=== PATIENT | male | born 1945 | race African-American/Black ===

== ENCOUNTER → 2019-05-21 08:23 | Outpatient (CLI) | payer MEDICARE, MEDICAID, SELFPAY ==
[2019-05-21 08:37] LABS: Basophils # 0.1 K/mm3 (0-0.2); Basophils % 1.3 % (0.1-2.0); Eosinophils # 0.2 K/mm3 (0.0-0.4); Eosinophils % 3.5 % (0.1-12.0); Hematocrit 44.3 % (42.0-52.0); Hemoglobin 14.7 g/dL (14.1-18.0); Lymphocytes # 1.7 K/mm3 (0.7-4.5); Lymphocytes % 39.6 % (10-50); Mean Corpuscular HGB Conc 33.2 g/dL (31.8-35.4); Mean Corpuscular Volume 87.3 fl (80-94); Mean Platelet Volume 7.7 fl (7.4-10.4); Monocytes # 0.3 K/mm3 (0.1-1.0); Monocytes % 5.7 % (1.7-9.3); Neutrophils # 2.2 K/mm3 (1.8-7.8); Platelet Count 262 K/mm3 (142-424); Red Blood Count 5.07 M/mm3 (4.60-6.20); Red Cell Distribution Width 13.2 % (11.5-17.5); White Blood Count 4.3 K/mm3 (4.8-10.8)
[2019-05-21 09:05] LABS: Chloride 101 mmol/L (98-107); Potassium 4.2 mmoL/L (3.5-5.1); Sodium 138 mmol/L (136-145)
[2019-05-21 09:08] LABS: Anion Gap 8.2 mEq/L (5-15); Blood Urea Nitrogen 17 mg/dl (9-20); Calcium 9.5 mg/dl (8.4-10.2); Carbon Dioxide 33 mmol/L (22.0-30.0); Estimated Glomerular Filt Rate 95 ml/min (>60); GFR (African American) 115 ML/MIN (>60); Glucose 116 mg/dl (74-100)
== END ==
LOC: LAB 05-22 07:53 → LAB.DROPOF 05-22 07:53
PROVIDERS: Visit Provider Emergency Medicine
DX: R73.9 Hyperglycemia, unspecified (principal)
CPT/HCPCS: 80048; 85025

== ENCOUNTER → 2019-08-25 07:43 | Outpatient (CLI) | payer MEDICARE, MEDICAID, SELFPAY ==
[2019-08-25 08:49] LABS: Coronavirus 19 IgG Antibody Negative (Negative); Coronavirus 19 IgM Antibody Negative (Negative)
== END ==
PROVIDERS: Visit Provider Surgery
DX: Z01.818 Encounter for other preprocedural examination (principal)
CPT/HCPCS: 36415; 86328

== ENCOUNTER 2019-08-26 07:07 | Day surgery (SDC) | payer MEDICARE, MEDICAID, SELFPAY ==
[2019-08-26] VITALS (7 sets, daily range): BP systolic 81–137; BP diastolic 49–79; PULSE 63–72; RESP 16; TEMP 36.3–36.5; O2SAT 95–99; BMI 25.9
--- NOTE | 2019-08-26 08:00 | P.PN_ITS ---
[facility] Anesthesia Checklist - Structural Data Admitted From: Long-term Nursing [facility] Planned Operative Procedure/s: colonoscopy Consent for Planned Operative Procedure(s) Verified: Yes - Airway Assessment C-Spine Mobility Assessed: Yes TMJ Mobility Assessed: Yes Dentition: Poor Dentition - Neurological Assessment Level of Consciousness: Awake, Alert, Inappropriate - Anesthesia Plan Anesthesia Risk discussed: Yes Anesthesia Plan: Verified ASA Class: III Anesthesia Type: MAC [facility] History I have reviewed the patient's past medical history: Yes Medical History: Denies:: Cancer, Diabetes Mellitus Type 1, Diabetes Mellitus Type 2, Internal Pacemaker, MRSA, Seizures *Have you ever received a pneumonia vaccine?: Yes *Have you received a flu vaccine this season?: Yes Anesthesia experience/problems:: none Other Surgeries: No: Pacemaker Amputation: No - *Social History Smoking Status: Smoker, status unknown Alcohol Intake: never Substance Use Type: denies use *Occupational Status:: disabled Housing: assisted living facility *Travel in the last 8 weeks: None Family Hx:: Unable to obtain
--- NOTE | 2019-08-26 08:57 | HMH.SCOPE ---
- Procedure: Date: 08/26/19 Procedure Performed:: Flexible sigmoidoscopy Indications:: Patient is a 73-year-old male senior care patient with reported schizophrenia referred by Shala Quiroz for colonoscopy. He had a Cologuard test which was positive. No known history of rectal bleeding or melena. No known history of previous colonoscopy Performing Provider:: Jean Carlos Neil MD Referring Provider:: Shala Quiroz Sedation:: Propofol Procedure:: Patient was taken to endoscopy procedure room. He was positioned in a lateral decubitus position. Adequate intravenous sedation was achieved with anesthesia titration of propofol. Variable stiffness Olympus colonoscope was inserted via the anus. There was some particulate stool within the rectum which was suctioned free. In the proximal rectum there is a circumferential ulcerated fungating and firm mass. This was between approximately 20 cm from the anal verge and 25 cm. The colonoscope was able to be, with some difficulty, advanced proximal to the lesion but the colonoscope could not be advanced any further likely due to significant diverticular disease. There did appear to be a tiny adenomatous polyp immediately proximal to the apparent circumferential proximal rectal carcinoma. Multiple biopsies were obtained of the circumferential mass. Once again the attempt was made to advance the colonoscope proximally which could not be safely performed likely due to significant diverticulosis. Colonoscope was withdrawn. 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 Arrangements will be made for colorectal surgical evaluation at a tertiary facility. Complications:: None immediately apparent Estimated blood obtained (mL): 5
== END 2019-08-26 09:47 | disposition home or self-care (01) ==
PROVIDERS: PCP Emergency Medicine; Visit Provider Surgery
PROC: 0DJD8ZZ Inspection of Lower Intestinal Tract, Via Natural or Artificial Opening Endoscopic (ICD-10-PCS; CPT 45330; principal; 2019-08-26 08:30)
DX: C20 Malignant neoplasm of rectum (principal); K57.30 Diverticulosis of large intestine without perforation or abscess without bleeding; F20.9 Schizophrenia, unspecified; Z79.899 Other long term (current) drug therapy
CPT/HCPCS: 45331; 88305

== ENCOUNTER → 2019-09-10 11:55 | Outpatient (CLI) | payer MEDICARE, MEDICAID, SELFPAY ==
[2019-09-10 13:01] LABS: Blood Urea Nitrogen 15 mg/dl (9-20); Estimated Glomerular Filt Rate 132 ml/min (>60); GFR (African American) 160 ML/MIN (>60)
== END ==
PROVIDERS: Visit Provider Emergency Medicine
DX: Z01.818 Encounter for other preprocedural examination (principal)
CPT/HCPCS: 82565; 84520

== ENCOUNTER → 2019-09-11 09:02 | Outpatient (CLI) | payer MEDICARE, MEDICAID, SELFPAY ==
--- NOTE | 2019-09-11 09:08 | CT_ITS ---
PROCEDURE: CT CHEST W CON CLINCAL INDICATION: COLON CA Follow-up colon cancer COMPARISON: CT CT ABDOMEN PELVIS W CON from 09/11/2019 TECHNIQUE: IV Contrast: 75ml Optiray 350 Axial images obtained with sagittal and coronal reformats. All CT scans at the facility use one or more dose reduction, viz: automated exposure control, ma/kV adjustment per patient size (including targeted exams where dose is matched to indication, i.e. head), or iterative reconstruction technique. FINDINGS: HEART AND MEDIASTINAL STRUCTURES: There are coronary artery calcifications. No mediastinal or hilar mass or adenopathy. There is minimal thickening of the pericardium anteriorly. LUNGS AND PLEURAL SPACES: 3 mm noncalcified nodule right upper lobe Number 21 series 4. 3 mm noncalcified nodule right upper lobe image 35 series 4. 9 mm noncalcified nodule right middle lobe anteriorly possibly fissural in nature having a flat like appearance. There is vascular crowding in the lung bases. There is a 4 mm noncalcified subpleural nodule in the left upper lobe patchy ground-glass density noted in the left lower lobe nonspecific. No effusions evident.. BONY STRUCTURES: No acute bony abnormalities apparent. IMPRESSION: 1. There are scattered small pulmonary nodular opacities the largest in the right middle lobe at 9 mm. These are nonspecific and could be inflammatory/infectious in nature. Cannot exclude the possibility of metastatic disease in this patient with history of colon cancer. Short-term follow-up is suggested. 2. Low lung volumes with vascular crowding in the lung bases and a patchy area of atelectasis or infiltrate in the left lung base medially Dictated b Hans Wheatley MD 09/12/2019 11:31 Hans Wheatley MD in [place] 09/12/2019 11:31
--- NOTE | 2019-09-11 09:08 | CT_ITS ---
PROCEDURE: CT ABDOMEN PELVIS W CON CLINICAL INDICATION: COLON CA Metastatic workup COMPARISON: No exams were available for comparison TECHNIQUE: IV Contrast: 75ML OPTIRAY 350 Oral Contrast None Axial images obtained with sagittal and coronal reformats. All CT scans at the facility use one or more dose reduction, viz: automated exposure control, ma/kV adjustment per patient size (including targeted exams where dose is matched to indication, i.e. head), or iterative reconstruction technique. FINDINGS: Multiple gallstones are present which measure up to 2.4 cm. No focal liver lesion is apparent. There is some fatty infiltration along the falciform ligament region. The spleen and pancreas have an unremarkable appearance. No adrenal mass evident. There is a 15 cm right renal cyst arising from the anterior aspect and mid aspect of the right kidney. There are smaller left renal cyst measuring up to 3.4 cm. No renal or ureteral calculi are evident. No hydronephrosis. No intestinal obstruction or free air. No evidence of appendicitis or diverticulitis. There is colonic diverticulosis. There is an area of somewhat irregular thickening involving the sigmoid colon in the right pelvic region. The sigmoid colon is redundant. This area of thickening measures approximately 5.4 cm in length. This is suspicious for neoplasm. There is some minimal increased density of the pericolic fat in this region suspicious for sub serosal invasion. A small lymph node is present to the right of the sigmoid colon at this area measuring 1.5 x 0.9 cm which could represent local lymph node involvement. There are degenerative changes in the lumbar spine with mild lumbar curvature convex left. No bony destructive process identified. IMPRESSION: 1. Sigmoid colon mass consistent with carcinoma with some ill definition of the colon wall peripherally and slight increased density of the pericolic fat suspicious for sub serosal spread with local lymph node involvement 2. No liver or adrenal metastasis apparent. 3. Large right renal cyst and smaller left renal cyst 4. Cholelithiasis Dictated b Hans Wheatley MD 09/12/2019 11:40 Hans Wheatley MD in [place] 09/12/2019 11:40
== END ==
PROVIDERS: PCP Emergency Medicine; Visit Provider Surgery
DX: C18.9 Malignant neoplasm of colon, unspecified (principal)
CPT/HCPCS: 71260; 74177; Q9967

== ENCOUNTER → 2019-10-13 11:05 | Outpatient (CLI) | payer MEDICARE, MEDICAID, SELFPAY ==
[2019-10-13 11:15] LABS: Basophils # 0.1 K/mm3 (0-0.2); Basophils % 1.7 % (0.1-2.0); Eosinophils # 0.1 K/mm3 (0.0-0.4); Eosinophils % 2.9 % (0.1-12.0); Hematocrit 39.6 % (42.0-52.0); Hemoglobin 13.5 g/dL (14.1-18.0); Lymphocytes # 1.3 K/mm3 (0.7-4.5); Lymphocytes % 27.7 % (10-50); Mean Corpuscular Hemoglobin 29.6 pg (27.0-31.2); Mean Platelet Volume 7.6 fl (7.4-10.4); Monocytes # 0.3 K/mm3 (0.1-1.0); Neutrophils # 2.9 K/mm3 (1.8-7.8); Neutrophils % 60.7 % (37.0-80.0); Platelet Count 247 K/mm3 (142-424); Red Blood Count 4.55 M/mm3 (4.60-6.20); Red Cell Distribution Width 13.4 % (11.5-17.5); White Blood Count 4.7 K/mm3 (4.8-10.8)
== END ==
PROVIDERS: Visit Provider Emergency Medicine
DX: K92.1 Melena (principal)
CPT/HCPCS: 85025

== ENCOUNTER → 2019-10-30 16:30 | Outpatient (CLI) | payer MEDICARE, MEDICAID, SELFPAY ==
[2019-11-01 18:25] LABS: Covid-19 Nasal PCR Sendout Lex NOT DETECTED
== END ==
PROVIDERS: Visit Provider Emergency Medicine
DX: Z03.818 Encounter for observation for suspected exposure to other biological agents ruled out (principal)
CPT/HCPCS: U0004

== ENCOUNTER → 2019-11-10 11:29 | Outpatient (CLI) | payer MEDICARE, MEDICAID, SELFPAY | PROVIDERS: Visit Provider Emergency Medicine | DX: Z03.818 Encounter for observation for suspected exposure to other biological agents ruled out (principal) | CPT/HCPCS: U0003 ==

== ENCOUNTER → 2020-02-24 02:32 | Outpatient (CLI) | payer MEDICARE, MEDICAID, SELFPAY ==
[2020-02-25 11:05] LABS: Covid-19 Nasal PCR Sendout P&C POSITIVE
== END ==
PROVIDERS: Visit Provider Emergency Medicine
DX: U07.1 COVID-19 (principal)
CPT/HCPCS: U0004

== ENCOUNTER 2023-04-30 17:43 | Emergency (ER) | payer MEDICARE, MEDICAID, SELFPAY ==
[2023-04-30] VITALS (39 sets, daily range): BP systolic 103–138; BP diastolic 50–77; PULSE 80–116; RESP 16–20; TEMP 36.4–36.9; O2SAT 93–100; BMI 25.1
--- NOTE | 2023-04-30 18:10 | ED_ITS ---
<Statement entered by Ez Dominique MD - 04/30/23 23:19> I was consulted by the ANNIKA, and we discussed the complexity of the problems being addressed. I approved the treatment and management plan for this patient's care in the emergency department, thus performing a substantive portion of the medical decision making. Ez Dominique MD Discharge Plan Disposition Patient Disposition: [facility] Condition: Good Prescriptions Prescriptions: No Action acetaminophen [Tylenol Extra Strength] 500 mg tablet 500 mg PO Q4H PRN (Reason: fever or pain) Qty: 60 0RF ondansetron HCl [Zofran] 4 mg tablet 4 mg PO Q8H PRN (Reason: nausea and vomiting) Qty: 14 0RF baclofen 10 mg tablet 10 mg PO Q6H PRN loratadine 10 mg tablet 5 mg PO DAILY metformin 500 mg tablet 500 mg PO BID montelukast 10 mg tablet 10 mg PO HS Risperdal Consta 50 mg/2 mL suspension,extended rel recon 50 mg IM Q14D potassium chloride 10 MEQ tablet extended release 10 meq PO DAILY Referrals Follow up/Referrals: James Michel DO [Primary Care Provider] - See instructions Activity Restrictions/Add. Instructions Additional Instructions/Restrictions: Patient accepted to the [facility] ER for Dr. Langford Clinical Impressions Clinical Impression: Colonic mass, Lymphadenopathy, mesenteric Anemia Qualifiers: Anemia type: unspecified type Qualified Code(s): D64.9 - Anemia, unspecified Discharge ED Provider: Ez Dominique General Adult HPI General Chief complaint: Recheck/Abnormal Lab/Rx Stated complaint: low hemoglobin Time Seen by Provider: 04/30/23 18:09 Mode of Arrival: EMS Source of Information: Patient, EMS and Medical Record Limitations: No Limitations Description of Symptoms (Recalled from ER Triage Doc. by RN): per [facility] home pt had labs drawn today and his hemoglobin was 5.0 and hemocrit was 17.2, states that he has been more lethargic and hasnt really ate the last few days. History of Present Illness HPI narrative: [facility] from the jail for reported hemoglobin of 5.1. There was no contacts provided by the jail as still was the patient's chronic hemoglobin has been. I review of the records does not provide any current data and last data that I have is from almost 4 years ago that showed a normal hemoglobin hematocrit. Patient himself has a history of schizophrenia and is a unreliable historian and is difficult to understand. To the best of my knowledge to determine the patient has had no GI bleeding has a history of sigmoid or rectal cancer status post resection but I had do not have documented confirmation of such. The remainder of his past medical history and review of systems is unobtainable at the time of my exam the patient's medical condition and lack of documentation sent from the jail. Related Data Home Medications Medication Instructions Recorded Confirmed potassium chloride 10 mEq 10 meq PO DAILY Supplement 08/22/19 03/03/23 tablet,extended release baclofen 10 mg tablet 10 mg PO Q6H PRN 01/11/23 03/03/23 loratadine 10 mg tablet 5 mg PO DAILY Allergy symptoms 01/11/23 03/03/23 metformin 500 mg tablet 500 mg PO BID 01/11/23 03/03/23 montelukast 10 mg tablet 10 mg PO HS 01/11/23 03/03/23 risperidone microspheres 50 mg/2 50 mg IM Q14D 01/11/23 03/03/23 mL intramuscular susp,ext release (Risperdal Consta) Previous Rx's Medication Instructions Recorded acetaminophen 500 mg tablet 500 mg PO Q4H PRN fever or pain 11/26/19 (Tylenol Extra Strength) #60 tabs ondansetron HCl 4 mg tablet 4 mg PO Q8H PRN nausea and 11/26/19 (Zofran) vomiting #14 tabs Allergies Allergy/AdvReac Type Severity Reaction Status Date / Time tuberculin Allergy Unknown Uncoded 01/10/23 16:21 [facility] Disclaimer: The information contained in this section may have been updated after the patient was seen, as this information can be updated by other users. Medical History (Updated 04/30/23 @ 21:31 by ATIF Hobson) Age-related nuclear cataract, bilateral Malignant neoplasm of rectum Positive colorectal cancer screening using Cologuard test Psychotic affective disorder Schizophrenia Hypokalemia Hyperglycemia Surgical History (Updated 03/03/23 @ 17:56 by Sagrario Mathew APRN) Hx of colonoscopy Social History Smoking Status: Unknown if ever smoked alcohol intake: never substance use type: denies use current occupational status: disabled Travel in the last 8 weeks: None housing: jail caffeine: No ROS Obtained: Yes Systems reviewed as appropriate & no additional complaints except as documented Physical Exam General General appearance: alert and in no apparent distress Head Head exam: atraumatic and normal inspection Eye Eye exam: Present normal appearance, PERRL and EOMI; Absent scleral icterus ENT ENT exam: Present normal exam, normal oropharynx and mucous membranes moist Neck Neck exam: Present normal inspection and full ROM; Absent lymphadenopathy Chest Chest inspection: Present normal inspection and symmetric chest wall rise Respiratory Respiratory exam: Present normal lung sounds bilaterally; Absent respiratory distress Cardiovascular Cardiovascular exam: Present regular rate, normal rhythm and normal heart sounds Abdominal Exam Abdominal exam: Present soft and normal bowel sounds; Absent distention, tenderness, guarding, rebound or mass exam: Present normal inspection and other (Rectal exam shows no stigmata of bleeding) Extremities Exam Extremities exam: Present normal inspection and full ROM Back Exam Back exam: Present normal inspection and full ROM Neurological Exam Neurological exam: Present alert (Patient is awake alert and interactive attempts to answer questions but is not understandable.) and CN II-XII intact; Absent oriented X3 Psychiatric Psychiatric exam: Present normal affect and normal mood Skin Skin exam: Present warm, dry and normal color Medical Decision Making Tarun Inquiry Pt receiving controlled substance: No Vital Signs: 04/30/23 17:44 04/30/23 17:52 04/30/23 18:00 Temperature 98.1 F Temperature Source Oral Pulse Rate 116 H Pulse Rate [Left Radial] 112 H Respiratory Rate 16 TAR Vitals Timing Blood Pressure 117/63 Blood Pressure [Right Arm] 103/67 L Blood Pressure Mean Blood Pressure Mean [Right Arm] 79 Blood Pressure Source Blood Pressure Source [Right Arm] Automatic Cuff Blood Pressure Position Blood Pressure Position [Right Arm] Sitting 02 Sat by Pulse Oximetry 98 95 Oxygen Delivery Method Room Air Room Air 04/30/23 18:30 04/30/23 19:00 04/30/23 19:30 Temperature Temperature Source Pulse Rate 111 H 105 H 100 H Pulse Rate [Left Radial] Respiratory Rate 20 20 TAR Vitals Timing Blood Pressure 124/61 137/74 118/68 Blood Pressure [Right Arm] Blood Pressure Mean 82 Blood Pressure Mean [Right Arm] Blood Pressure Source Blood Pressure Source [Right Arm] Blood Pressure Position Blood Pressure Position [Right Arm] 02 Sat by Pulse Oximetry 96 96 98 Oxygen Delivery Method Room Air Room Air Room Air 04/30/23 20:00 04/30/23 20:29 04/30/23 20:35 Temperature 97.6 F 97.8 F Temperature Source Oral Oral Pulse Rate 92 H 91 H 90 Pulse Rate [Left Radial] Respiratory Rate 17 16 TAR Vitals Timing Pre-Blood Vitals Start Vitals Blood Pressure 132/61 111/69 128/73 Blood Pressure [Right Arm] Blood Pressure Mean 85 83 91 Blood Pressure Mean [Right Arm] Blood Pressure Source Automatic Cuff Automatic Cuff Blood Pressure Source [Right Arm] Blood Pressure Position Sitting Sitting Blood Pressure Position [Right Arm] 02 Sat by Pulse Oximetry 97 98 97 Oxygen Delivery Method 04/30/23 20:40 04/30/23 20:45 04/30/23 20:50 Temperature 97.6 F 97.7 F 98.1 F Temperature Source Oral Oral Oral Pulse Rate 89 99 H 96 H Pulse Rate [Left Radial] Respiratory Rate 16 16 16 TAR Vitals Timing 5 Minute 10 Minute 15 Minute Blood Pressure 103/64 L 117/72 121/64 Blood Pressure [Right Arm] Blood Pressure Mean 77 87 83 Blood Pressure Mean [Right Arm] Blood Pressure Source Automatic Cuff Automatic Cuff Automatic Cuff Blood Pressure Source [Right Arm] Blood Pressure Position Sitting Sitting Sitting Blood Pressure Position [Right Arm] 02 Sat by Pulse Oximetry 95 100 100 Oxygen Delivery Method 04/30/23 21:05 04/30/23 21:20 04/30/23 21:35 Temperature 98.0 F 98.2 F 98.4 F Temperature Source Oral Oral Oral Pulse Rate 94 H 88 98 H Pulse Rate [Left Radial] Respiratory Rate 16 16 16 TAR Vitals Timing 30 Minute 45 Minute 60 Minute Blood Pressure 138/69 119/77 111/50 L Blood Pressure [Right Arm] Blood Pressure Mean 92 91 70 Blood Pressure Mean [Right Arm] Blood Pressure Source Automatic Cuff Automatic Cuff Automatic Cuff Blood Pressure Source [Right Arm] Blood Pressure Position Sitting Sitting Sitting Blood Pressure Position [Right Arm] 02 Sat by Pulse Oximetry 99 98 97 Oxygen Delivery Method Lab Data Lab results reviewed: Yes I reviewed the patient's lab results. Lab Results 04/30/23 17:52: WBC 5.0, RBC 3.22 L, Hgb 5.6 L*, Hct 19.8 L*, MCV 61.4 L, MCH 17.5 L, MCHC 28.5 L, RDW 17.8 H, Plt Count 485 H, MPV 8.1, Neut % (Auto) 59.9, Lymph % (Auto) 28.6, [place] % (Auto) 8.7, Eos % (Auto) 1.7, Baso % (Auto) 1.1, Neut # (Auto) 3.0, Lymph # (Auto) 1.4, [place] # (Auto) 0.4, Eos # (Auto) 0.1, Baso # (Auto) 0.1, PT 13.0 H, INR 1.22 H, Sodium 139, Potassium 3.3 L, Chloride 108 H , Carbon Dioxide 23, Anion Gap 11.3, BUN 10, Creatinine 0.80, Estimated Creat Clear 74, Estimated GFR 94, Est GFR ( Amer) 113, Glucose 185 H, Calcium 8.1 L, Magnesium 1.9, Total Bilirubin 0.4, AST 27, ALT 28, Alkaline Phosphatase 54, Total Protein 6.9, Albumin 3.1 L, Globulin 3.8 H, Albumin/Globulin Ratio 0.8 L, Blood Type Confirm O Positive 04/30/23 18:32: Blood Type O Positive, Antibody Screen Negative, Crossmatch (AHG) See Detail 04/30/23 17:52 04/30/23 17:52 Orders (Tests/Meds): ED MEDICATIONS Generic Name Dose Route Start Last Admin Trade Name Freq PRN Reason Stop Dose Admin Sodium Chloride 250 mls @ 25 mls/hr 04/30/23 18:45 Sod Chlor 0.9% 250ml Bag IV 05/01/23 18:44 .Q10H TRUNG Sodium Chloride 10 ml 04/30/23 19:56 04/30/23 19:57 Sodium Chloride 0.9% 10ml Syr (Rad Only) IV 05/30/23 19:55 10 ml NEEDED PRN Administration Maintain IV Site Discontinued Medications Generic Name Dose Route Start Last Admin Trade Name Freq PRN Reason Stop Dose Admin Acetaminophen 1,000 mg 04/30/23 18:44 04/30/23 19:07 Acetaminophen 1,000mg/100ml Vial IV 04/30/23 18:45 1,000 mg ONCE ONE Administration Lactated Ringer's 1,000 mls @ 999 mls/hr 04/30/23 18:14 04/30/23 18:59 Lactated Ringer's 1000 Ml Bag IV 04/30/23 19:14 999 mls/hr .Q1H1M ONE Administration Iopamidol 75 ml 04/30/23 19:56 04/30/23 19:57 Iopamidol-370 (76%);100ml Bottle IV 04/30/23 19:57 75 ml ONCE ONE Administration Ketorolac Tromethamine 15 mg 04/30/23 18:44 04/30/23 18:57 Ketorolac 30mg/Ml Vial IV 04/30/23 18:45 15 mg ONCE ONE Administration Morphine Sulfate 2 mg 04/30/23 18:44 04/30/23 19:00 Morphine 2mg/Ml Syringe IV 04/30/23 18:45 2 mg ONCE ONE Administration ORDERS Category Date Time Status Blood transfusion [Red Blood Cells] Stat BBK 04/30/23 18:32 Results Type and Screen Stat K 04/30/23 18:[address] abdomen pelvis w con Stat Cat Scan 04/30/23 19:13 Completed Complete Blood Count Auto Diff Stat Lab 04/30/23 17:52 Completed Comprehensive Metabolic Panel Stat Lab 04/30/23 17:52 Completed INR [Prothrombin Time INR] Stat Lab 04/30/23 17:52 Completed Magnesium Stat Lab 04/30/23 17:52 Completed Occult Blood,Stool Stat Lab 04/30/23 18:18 Ordered UA [Urinalysis and Microscopic] Stat Lab 04/30/23 18:15 Ordered Medical Decision Narrative: In summary patient is a 70-year-old male who presents to the emergency department for evaluation of initially anemia. Patient is presented tachycardic at 112 with a blood pressure of 103/67 respiratory rate is 16 temperature 98.1 with O2 sat of 98% on room air. Upon arrival, and afebrile. Physical exam is unremarkable and nonfocal including no abdominal pain and no obvious stigmata of bleeding or hemorrhoids on rectal. Patient has schizophrenia and is a difficult historian and very difficult to understand if at all. He seems to understand questioning but I do not know if he is answering appropriately.. Differential diagnosis includes GI blood loss versus iron deficiency anemia versus neoplastic disease versus bone marrow suppression etc.. Initial workup will be conducted with hematologic labs CT scan of the abdomen pelvis with contrast.. Initial interventions include crystalloid bolus type and screen with transfusion packed red blood cells. Initial workup reviewed by me does indeed show a hemoglobin of 5.6 but also evidence of iron deficiency. CT scan of the abdomen pelvis via my informal interpretation shows right lower quadrant mesenteric lymphadenopathy with a mass in the ileocecal valve area does not appear obstructing. Given the resources needed including gastroenterology colorectal surgery and hematology oncology not available inpatient at this facility I discussed the patient management with the [facility]. They graciously accepted the patient in transfer to [facility] in the care of Dr Langford Critical Care Critical Care Time Critical Care Time: No
[2023-04-30 18:17] LABS: Basophils # 0.1 K/mm3 (0-0.2); Basophils % 1.1 % (0.1-2.0); Eosinophils # 0.1 K/mm3 (0.0-0.4); Eosinophils % 1.7 % (0.1-12.0); Lymphocytes # 1.4 K/mm3 (0.7-4.5); Lymphocytes % 28.6 % (10-50); Mean Corpuscular HGB Conc 28.5 g/dL (31.8-35.4); Mean Corpuscular Hemoglobin 17.5 pg (27.0-31.2); Mean Corpuscular Volume 61.4 fl (80-94); Mean Platelet Volume 8.1 fl (7.4-10.4); Monocytes # 0.4 K/mm3 (0.1-1.0); Monocytes % 8.7 % (1.7-9.3); Neutrophils % 59.9 % (37.0-80.0); Platelet Count 485 K/mm3 (142-424); Red Blood Count 3.22 M/mm3 (4.60-6.20); Red Cell Distribution Width 17.8 % (11.5-17.5)
[2023-04-30 18:19] LABS: Chloride 108 mmol/L (98-107); Hematocrit 19.8 % (42.0-52.0)
[2023-04-30 18:20] LABS: Potassium 3.3 mmoL/L (3.5-5.1); Sodium 139 mmol/L (136-145)
--- NOTE | 2023-04-30 18:20 | PC.NURSE ---
Critical H&H reported to MD at this time by AxelRN
[2023-04-30 18:22] LABS: Alanine Aminotransferase 28 U/L (12-78); Albumin Level 3.1 g/dl (3.5-5.0); Albumin/Globulin Ratio 0.8 (1.1-1.8); Alkaline Phosphatase 54 U/L (38-126); Anion Gap 11.3 mEq/L (5-15); Aspartate Amino Transferase 27 U/L (17-59); Bilirubin,Total 0.4 mg/dl (0.2-1.3); Blood Urea Nitrogen 10 mg/dl (9-20); Carbon Dioxide 23 mmol/L (22.0-30.0); Creatinine Clearance Estimated 74 mL/min (50-200); Estimated Glomerular Filt Rate 94 ml/min (>60); GFR (African American) 113 ML/MIN (>60); Globulin 3.8 g/dL (1.3-3.2); Total Protein,Serum 6.9 g/dl (6.3-8.2)
[2023-04-30 18:23] LABS: Calcium 8.1 mg/dl (8.4-10.2); Glucose 185 mg/dl (74-100)
[2023-04-30 18:37] LABS: INR 1.22 (0.9-1.1)
[2023-04-30 18:40] LABS: Magnesium 1.9 mg/dl (1.6-2.3)
[2023-04-30 18:45] LABS: Hemoglobin 5.6 g/dL (14.1-18.0)
[2023-04-30] MEDS: KETOROLAC 30MG/ML VIAL 15 MG IV (18:57)
[2023-04-30] MEDS: LACTATED RINGERS 1000ML 1,000 ML 999 ML IV (18:59)
[2023-04-30] MEDS: MORPHINE 2MG/ML SYRINGE 2 MG IV (19:00)
[2023-04-30] MEDS: ACETAMINOPHEN 1,000MG/100ML VIAL 1000 MG IV (19:07)
--- NOTE | 2023-04-30 19:13 | CT_ITS ---
PROCEDURE INFORMATION: Exam: CT Abdomen And Pelvis With Contrast Exam date and time: 04/30/2023 7:50 PM Age: 77 years old Clinical indication: Condition or disease; Other: Cancer; Additional info: Remote HX colorectal cancer, unknown surgery, abla TECHNIQUE: Imaging protocol: Computed tomography of the abdomen and pelvis with contrast. Radiation optimization: All CT scans at this facility use at least one of these dose optimization techniques: automated exposure control; mA and/or kV adjustment per patient size (includes targeted exams where dose is matched to clinical indication); or iterative reconstruction. Contrast material: ISOVUE; Contrast volume: 75 ml; Contrast route: IV; COMPARISON: CT ABDOMEN PELVIS W CON 09/11/2019 9:31 AM FINDINGS: Lungs: Compressive atelectasis of the lungs. Pleural spaces: Small bilateral pleural effusions are present. Heart: Small pericardial effusion. Liver: Normal. No mass. Gallbladder and bile ducts: Multiple dependently layering hyperattenuating structures are noted within the gallbladder fossa without wall thickening, or pericholecystic fluid. Pancreas: Normal. No ductal dilation. Spleen: Normal. No splenomegaly. Adrenal glands: Normal. No mass. Kidneys and ureters: Normal. No hydronephrosis. Stomach and bowel: Postsurgical changes with chain suture anastomosis of the rectum and sigmoid colon. Lobular masslike enhancement of the ileocecal valve which measures 6.2 x 6.8 x 3.7 cm with density of 67 Hounsfield units and evidence of vascular supply best seen on image 28 of series 1001, may represent soft tissue mass, less likely hyperattenuating adherent fecal material. Appendix: No evidence of appendicitis. Intraperitoneal space: Unremarkable. No free air. No significant fluid collection. Vasculature: Unremarkable. No abdominal aortic aneurysm. Lymph nodes: Prominent right lower quadrant mesenteric nodes measuring up to 9 mm in short axis. Urinary bladder: Unremarkable as visualized. Reproductive: Nodular enhancement and enlargement of the prostate measuring 5.7 x 4.8 in axial dimension. Bones/joints: Moderate loss of intervertebral disc space with degenerative changes at lumbar spine greatest from L4 through L5. Soft tissues: Normal. IMPRESSION: 1. Lobular masslike enhancement of the ileocecal valve which measures 6.2 x 6.8 x 3.7 cm with density of 67 Hounsfield units and evidence of vascular supply best seen on image 28 of series 1001, may represent soft tissue mass, less likely hyperattenuating adherent fecal material. Recommend GI referral for further evaluation, and/or PET-CT evaluation. 2. Prominent right lower quadrant mesenteric nodes measuring up to 9 mm in short axis. 3. Small bilateral pleural effusions with compressive atelectasis. 4. Cholelithiasis without CT evidence of cholecystitis. 5. Nodular enhancement and enlargement of the prostate measuring 5.7 x 4.8 in axial dimension. Consider correlation with PSA laboratory testing.
--- NOTE | 2023-04-30 19:44 | PC.NURSE ---
pt has went to radiology
[2023-04-30] MEDS: IOPAMIDOL-370 (76%);100ML BOTTLE 75 ML IV (19:57)
[2023-04-30] MEDS: SODIUM CHLORIDE 0.9% 10ML SYR (RAD ONLY) 10 ML IV (19:57)
--- NOTE | 2023-04-30 20:09 | PC.NURSE ---
Notified that blood is ready, notified charge aide.
--- NOTE | 2023-04-30 23:20 | PC.NURSE ---
Assumed care of currently transfusing blood from [facility].
[2023-05-01 00:48] VITALS: BP 124/89; PULSE 84; RESP 18; TEMP 36.6; O2SAT 98
== END 2023-05-01 00:49 | disposition short-term general hospital (02) ==
PROVIDERS: Physician Assistant; Emergency Provider Emergency Medicine; PCP Internal Medicine
DX: D63.0 Anemia in neoplastic disease (principal); K63.89 Other specified diseases of intestine; R59.0 Localized enlarged lymph nodes; E61.1 Iron deficiency; F20.9 Schizophrenia, unspecified
CPT/HCPCS: 36415; 36430; 74177; 80053; 83735; 85025; 85610; 86850; 96361; 96374; 96375; 99285; J0131; P9016; Q9967